=== PATIENT | female | born 1975 | race Caucasian/White ===

== ENCOUNTER 2025-03-22 06:05 | Day surgery (SDC) | payer BC ==
[~2025-03-22] VITALS: Ht 154.9 cm; Wt 59.4 kg
[~2025-03-22 06:05] MED LIST: AMOX500C PO; ORTH1TAB8 PO
[2025-03-22] MEDS ORDERED: LR 1,000 ML IV SCH (06:30)
[2025-03-22] MEDS ORDERED: MIDAZOLAM INJ 2 MG/2 ML VIAL As Ordered ONE (07:03)
[2025-03-22] MEDS ORDERED: LIDOCAINE 2% 100 MG/5 ML SDV (FOR ANES.) As Ordered ONE (07:06)
[2025-03-22] MEDS: ceFAZolin SODIUM 2 GM in DEXTROSE 5% (D5W) ADV/MINI-BAG 50 ML IV ONE (07:27)
[2025-03-22] MEDS ORDERED: ONDANSETRON 4MG 2ML VIAL As Ordered ONE (07:34)
[2025-03-22] MEDS: LIDOCAINE 2% MDV 20 ML VIAL As Ordered ONE (07:37)
[2025-03-22] MEDS: GENTAMICIN SULF 80 MG/2 ML VIAL As Ordered ONE (08:01)
[2025-03-22] MEDS: dexAMETHasone 4 MG/ML 1 ML VIAL As Ordered ONE (08:28)
[2025-03-22 09:56] VITALS: BP 122/77; TEMP 98.3; O2SAT 100
== END 2025-03-22 10:06 | disposition home or self-care (01) ==
LOC: M SDC 06:05
PROVIDERS: ATTEND Podiatrist
DX: M20.11 Hallux valgus (acquired), right foot (principal); J30.1 Allergic rhinitis due to pollen; K02.9 Dental caries, unspecified; Z79.3 Long term (current) use of hormonal contraceptives; Z79.2 Long term (current) use of antibiotics
CPT/HCPCS: 28296; 73620; 73630; 81025; 88300; 97116; 97530; C1713; J0665; J0690; J1100; J1580; J2250; J2405; J3010

== ENCOUNTER → 2025-03-26 | Outpatient (CLI) | payer BC | LOC: M RAD 10:36 | PROVIDERS: ATTEND Podiatrist | DX: M79.661 Pain in right lower leg (principal) ==